=== PATIENT | female | born 1940 | race African-American/Black ===

== ENCOUNTER 2021-04-27 05:19 | Inpatient (IN) | payer MEDICARE, MEDICAID ==
[~2021-04-27] VITALS: Ht 162.6 cm; Wt 67.6 kg
[2021-04-27] MEDS ORDERED: TRAMADOL 50MG TABLET PO ONE (05:45)
[2021-04-27] MEDS ORDERED: SODIUM CHLORIDE 0.9% 250 ML IV ONE (05:45)
[2021-04-27 06:38] LABS: CHLORIDE 109 mEq/L (98-107)
[2021-04-27 06:43] LABS: HEMATOCRIT. 33.4 % (36.0-48.0); HEMOGLOBIN. 10.8 g/dL (12.0-16.0); MEAN CORPUSCULAR HEMOGLOBIN 22.8 pg (28.0-32.0); MEAN CORPUSCULAR VOLUME 70.2 fL (81.0-99.0); MEAN PLATELET VOLUME 8.7 fl (7.4-10.4); PLATELET 169 x1000/uL (130-400); RED BLOOD CELL COUNT 4.75 mill/uL (4.2-5.4); RED CELL DISTRIBUTION WIDTH 16.3 % (11.6-14.6)
[2021-04-27 06:47] LABS: CREATINE KINASE 120 IU/L (26-192)
[2021-04-27 06:52] LABS: PROTHROMBIN TIME 10.3 sec (9.6-11.0)
[2021-04-27 08:46] LABS: PLATELET ESTIMATE NORMAL
[2021-04-27] MEDS ORDERED: ACETAMINOPHEN 650MG SUPP PR PRN (10:15)
[2021-04-27] MEDS ORDERED: NITROGLYCERIN 0.4MG TABLET SL SL PRN (10:15)
[2021-04-27] MEDS ORDERED: ONDANSETRON HCL 4MG/2ML INJ IV PRN (10:15)
[2021-04-27] MEDS ORDERED: KETOROLAC 15MG/ML VIAL IV PRN (10:15)
[2021-04-27] MEDS ORDERED: NA PHOS,M-B/NA PHOS,DI-BA ENEMA 118ML PR PRN (10:15)
[2021-04-27] MEDS ORDERED: IPRATROPIUM/ALBUTEROL 0.5-3(2.5)MG/3ML NEB NEB PRN (10:15)
[2021-04-27] MEDS ORDERED: NALOXONE HCL 0.4MG/ML VIAL IV PRN (10:30)
[2021-04-27 11:00] VITALS: BP 144/84
[2021-04-27 11:13] VITALS: BP 144/84
[2021-04-27] MEDS: PANTOPRAZOLE SODIUM 40 MG/VIAL IV SCH (13:02)
[2021-04-27] MEDS: MORPHINE SULFATE 2 MG/ML CPJ (NOT FOR IM USE) IV PRN (13:02)
[2021-04-27] MEDS: ENOXAPARIN 40MG/0.4ML SYR SUBCUT SCH (13:04)
[2021-04-27] MEDS: ACETAMINOPHEN 650MG/20.3ML UDC GT PRN (13:05)
[2021-04-27 16:00] VITALS: BP 187/66
[2021-04-27] MEDS ORDERED: CARI350T27 MT (16:33)
[2021-04-27] MEDS ORDERED: CLON0.3T PO (16:33)
[2021-04-27] MEDS ORDERED: MONT10TA21 PO (16:33)
[2021-04-27] MEDS ORDERED: REVE175V IH (16:33)
[2021-04-27] MEDS ORDERED: MAG30ORA PO (16:33)
[2021-04-27] MEDS ORDERED: ATOR10TA69 MT (16:33)
[2021-04-27] MEDS ORDERED: IBUP-2741 MT (16:33)
[2021-04-27] MEDS ORDERED: LINA145C PO (16:33)
[2021-04-27] MEDS ORDERED: LIDO700A30 TP (16:33)
[2021-04-27] MEDS ORDERED: LORA-250 MT (16:33)
[2021-04-27] MEDS ORDERED: CLON-457 PO (16:33)
[2021-04-27] MEDS ORDERED: MOME17SP9 BOTHNSTRLS (16:33)
[2021-04-27] MEDS ORDERED: FORM20VI IH (16:33)
[2021-04-27] MEDS ORDERED: ASPI-1160 PO (16:33)
[2021-04-27] MEDS ORDERED: HYDR-4001 PO (16:33)
[2021-04-27] MEDS ORDERED: FOLI-43 PO (16:33)
[2021-04-27] MEDS ORDERED: OMEP20CA14 PO (16:33)
[2021-04-27] MEDS ORDERED: NITR0.4T49 SL (16:33)
[2021-04-27] MEDS ORDERED: METH2.5T PO (16:33)
[2021-04-27] MEDS ORDERED: DOCU-150 PO (16:33)
[2021-04-27] MEDS ORDERED: B25 PO (16:33)
[2021-04-27] MEDS ORDERED: BUDE0.25 NEB (16:33)
[2021-04-27] MEDS ORDERED: AMLO10TA80 MT (16:33)
[2021-04-27] MEDS ORDERED: SILD20TA PO (16:33)
[2021-04-27] MEDS ORDERED: POTA20TA82 PO (16:33)
[2021-04-27] MEDS ORDERED: ZOLP5TAB8 PO (16:33)
[2021-04-27] MEDS ORDERED: CARV25TA47 PO (16:33)
[2021-04-27] MEDS ORDERED: GABA-532 PO (16:33)
[2021-04-27] MEDS ORDERED: PHEN100C12 PO (16:33)
[2021-04-27] MEDS ORDERED: ROSU5TAB PO (16:33)
[2021-04-27] MEDS ORDERED: INSU100I11 SQ (16:33)
[2021-04-27] MEDS ORDERED: NIFE-32 MT (16:33)
[2021-04-27] MEDS ORDERED: HYDR200T35 PO (16:33)
[2021-04-27] MEDS ORDERED: HYDR453.3 TP (16:33)
[2021-04-27] MEDS ORDERED: DEXT15SY3 PO (16:33)
[2021-04-27] MEDS ORDERED: HYDR-4135 MT (16:33)
[2021-04-27] MEDS ORDERED: IPRA3AMP9 HHN (16:33)
[2021-04-27] MEDS ORDERED: CELE-84 PO (16:33)
[2021-04-27] MEDS ORDERED: TOPUD PO (16:33)
[2021-04-27] MEDS ORDERED: VORT10TA PO (16:33)
[2021-04-27] MEDS ORDERED: LORAZEPAM 2MG/ML CPJ IV PRN (17:15)
[2021-04-27] MEDS ORDERED: LEVETIRACETAM 500 MG in SODIUM CHLORIDE 0.9% 100 ML IV SCH (17:30)
[2021-04-27 20:00] VITALS: BP 174/80
[2021-04-27] MEDS: HYDRALAZINE 20MG/ML VIAL IV PRN (20:43)
[2021-04-27] MEDS: NITROGLYCERIN OINT 1GM/INCH UDPKT TD SCH (20:43)
[2021-04-27] MEDS: LEVETIRACETAM 500MG PREMIX 100 ML IV SCH (20:43)
[2021-04-27] MEDS: DEXT 5%/LACTATED RINGERS 1,000 ML IV SCH ×2 (20:44→23:35)
[2021-04-28] VITALS: BP 130/73
[2021-04-28 04:00] VITALS: BP 160/77
[2021-04-28] MEDS: NITROGLYCERIN OINT 1GM/INCH UDPKT TD SCH ×3 (06:19→21:12)
[2021-04-28] MEDS: HYDRALAZINE 20MG/ML VIAL IV PRN (06:22)
[2021-04-28 07:08] LABS: CHLORIDE 111 mEq/L (98-107)
[2021-04-28 07:09] LABS: BASOPHILS % 0.3 % (0.0-2.0); EOSINOPHILS % 0.6 % (0.0-5.0); HEMATOCRIT. 26.6 % (36.0-48.0); HEMOGLOBIN. 8.7 g/dL (12.0-16.0); LYMPHOCYTES % 30.3 % (20.0-50.0); MEAN CORPUSCULAR HEMOGLOBIN 22.9 pg (28.0-32.0); MEAN PLATELET VOLUME 8.3 fl (7.4-10.4); MONOCYTES % 8.5 % (2.0-8.0); NEUTROPHILS % 60.3 % (40.0-76.0); PLATELET 122 x1000/uL (130-400); RED BLOOD CELL COUNT 3.79 mill/uL (4.2-5.4); RED CELL DISTRIBUTION WIDTH 15.5 % (11.6-14.6)
[2021-04-28 07:17] LABS: PHOSPHORUS 2.5 mg/dL (2.5-4.9)
[2021-04-28] MEDS: MORPHINE SULFATE 2 MG/ML CPJ (NOT FOR IM USE) IV PRN (07:21)
[2021-04-28 08:00] VITALS: BP 123/63
[2021-04-28] MEDS: LEVETIRACETAM 500MG PREMIX 100 ML IV SCH ×2 (08:23→20:49)
[2021-04-28] MEDS: PANTOPRAZOLE SODIUM 40 MG/VIAL IV SCH (08:26)
[2021-04-28] MEDS: CYANOCOBALAMIN 1000MCG/ML VIAL IM SCH (08:26)
[2021-04-28] MEDS ORDERED: INFLUENZA VACCINE 05/PF 0.5 ML SYRINGE IM ONE (09:00)
[2021-04-28 12:00] VITALS: BP 128/70
[2021-04-28] MEDS: ENOXAPARIN 40MG/0.4ML SYR SUBCUT SCH (13:25)
[2021-04-28 16:00] VITALS: BP 115/58
[2021-04-28] MEDS: DEXT 5%/LACTATED RINGERS 1,000 ML IV SCH (17:43)
[2021-04-28 20:00] VITALS: BP 139/66
[2021-04-29] VITALS: BP 144/75
[2021-04-29] MEDS: DEXT 5%/LACTATED RINGERS 1,000 ML IV SCH ×2 (00:55→17:41)
[2021-04-29] MEDS: MORPHINE SULFATE 2 MG/ML CPJ (NOT FOR IM USE) IV PRN ×3 (02:39→19:53)
[2021-04-29 04:00] VITALS: BP 150/73
[2021-04-29] MEDS: NITROGLYCERIN OINT 1GM/INCH UDPKT TD SCH ×3 (05:55→21:49)
[2021-04-29 08:00] VITALS: BP 157/84
[2021-04-29] MEDS: FAMOTIDINE 20MG/2ML VIAL IV SCH (09:45)
[2021-04-29] MEDS: CYANOCOBALAMIN 1000MCG/ML VIAL IM SCH (09:45)
[2021-04-29] MEDS: LEVETIRACETAM 500MG PREMIX 100 ML IV SCH (09:49)
[2021-04-29 12:00] VITALS: BP 129/64
[2021-04-29] MEDS: ENOXAPARIN 40MG/0.4ML SYR SUBCUT SCH (12:01)
[2021-04-29 16:00] VITALS: BP 151/72
[2021-04-29] MEDS: LEVETIRACETAM 500MG TABLET PO SCH (17:41)
[2021-04-29 20:00] VITALS: BP 147/68
[2021-04-30] VITALS: BP 138/65
[2021-04-30 04:00] VITALS: BP 158/82
[2021-04-30] MEDS: DEXT 5%/LACTATED RINGERS 1,000 ML IV SCH (04:39)
[2021-04-30] MEDS: MORPHINE SULFATE 2 MG/ML CPJ (NOT FOR IM USE) IV PRN ×2 (04:39→17:24)
[2021-04-30] MEDS: NITROGLYCERIN OINT 1GM/INCH UDPKT TD SCH ×2 (05:29→13:57)
[2021-04-30 08:20] VITALS: BP 146/64
[2021-04-30] MEDS: CYANOCOBALAMIN 1000MCG/ML VIAL IM SCH (09:48)
[2021-04-30] MEDS: FAMOTIDINE 20MG/2ML VIAL IV SCH (09:48)
[2021-04-30] MEDS: LEVETIRACETAM 500MG TABLET PO SCH ×2 (09:48→17:31)
[2021-04-30] MEDS: ACETAMINOPHEN 650MG/20.3ML UDC GT PRN (09:52)
[2021-04-30] MEDS: ENOXAPARIN 40MG/0.4ML SYR SUBCUT SCH (10:05)
[2021-04-30 12:00] VITALS: BP 145/75
[2021-04-30] MEDS ORDERED: NITROGLYCERIN 0.4MG TABLET SL SL PRN (14:00)
[2021-04-30] MEDS ORDERED: BUTALBITAL/ACETAMINOPHEN/CAFFEINE 50/325/40MG TABLET PO PRN (15:00)
[2021-04-30 16:00] VITALS: BP 138/70
[2021-04-30 20:00] VITALS: BP 159/72
[2021-04-30] MEDS: HYDRALAZINE 20MG/ML VIAL IV PRN (23:34)
[2021-05-01] VITALS: BP 167/95
[2021-05-01 04:00] VITALS: BP 140/78
[2021-05-01] MEDS: DEXT 5%/LACTATED RINGERS 1,000 ML IV SCH ×2 (05:54→21:49)
[2021-05-01 08:00] VITALS: BP 152/61
[2021-05-01] MEDS: CYANOCOBALAMIN 1000MCG/ML VIAL IM SCH (09:14)
[2021-05-01] MEDS: FAMOTIDINE 20MG TABLET PO SCH (09:14)
[2021-05-01] MEDS: LEVETIRACETAM 500MG TABLET PO SCH ×2 (09:14→17:12)
[2021-05-01 12:00] VITALS: BP 137/78
[2021-05-01] MEDS: ENOXAPARIN 40MG/0.4ML SYR SUBCUT SCH (12:23)
[2021-05-01] MEDS: MORPHINE SULFATE 2 MG/ML CPJ (NOT FOR IM USE) IV PRN ×2 (12:39→21:49)
[2021-05-01 16:00] VITALS: BP 167/83
[2021-05-01 20:00] VITALS: BP 134/93
[2021-05-02] VITALS: BP 130/74
[2021-05-02 04:00] VITALS: BP 136/61
[2021-05-02 08:00] VITALS: BP 137/73
[2021-05-02] MEDS: FAMOTIDINE 20MG TABLET PO SCH (09:10)
[2021-05-02] MEDS: LEVETIRACETAM 500MG TABLET PO SCH ×2 (09:10→17:48)
[2021-05-02] MEDS: CYANOCOBALAMIN 1000MCG/ML VIAL IM SCH (09:10)
[2021-05-02] MEDS: PANTOT AC/MIN OIL/PET HY-PHL OINT (AQUAPHOR) TOP SCH (11:46)
[2021-05-02] MEDS: ENOXAPARIN 40MG/0.4ML SYR SUBCUT SCH (11:48)
[2021-05-02 12:00] VITALS: BP 134/73
[2021-05-02] MEDS: LIDOCAINE 5% PATCH TOP SCH (14:54)
[2021-05-02 16:00] VITALS: BP 154/70
[2021-05-02 20:00] VITALS: BP 106/79
[2021-05-02] MEDS: DEXT 5%/LACTATED RINGERS 1,000 ML IV SCH (22:17)
[2021-05-03] VITALS: BP 141/69
[2021-05-03 04:00] VITALS: BP 167/75
[2021-05-03] MEDS: HYDRALAZINE 20MG/ML VIAL IV PRN (06:24)
[2021-05-03 08:00] VITALS: BP 107/47
[2021-05-03] MEDS: METHYL SALICYLATE/MENTHOL CREAM 85GM TOP PRN ×2 (09:27→09:29)
[2021-05-03] MEDS: CYANOCOBALAMIN 1000MCG/ML VIAL IM SCH (09:28)
[2021-05-03] MEDS: LEVETIRACETAM 500MG TABLET PO SCH ×2 (09:28→17:29)
[2021-05-03] MEDS: FAMOTIDINE 20MG TABLET PO SCH (09:28)
[2021-05-03] MEDS: LIDOCAINE 5% PATCH TOP SCH (09:28)
[2021-05-03] MEDS: PANTOT AC/MIN OIL/PET HY-PHL OINT (AQUAPHOR) TOP SCH (09:29)
[2021-05-03] MEDS: ENOXAPARIN 40MG/0.4ML SYR SUBCUT SCH (11:44)
[2021-05-03 12:00] VITALS: BP 124/64
[2021-05-03] MEDS: DEXT 5%/LACTATED RINGERS 1,000 ML IV SCH (12:55)
[2021-05-03] MEDS ORDERED: DIPHENHYDRAMINE 12.5MG/5ML UDC PO PRN (14:15)
[2021-05-03 16:00] VITALS: BP 129/68
[2021-05-03 20:00] VITALS: BP 128/72
[2021-05-04] VITALS: BP 127/59
[2021-05-04] MEDS: DEXT 5%/LACTATED RINGERS 1,000 ML IV SCH (01:40)
[2021-05-04 04:00] VITALS: BP 96/59
[2021-05-04 08:00] VITALS: BP 138/51
[2021-05-04] MEDS: FAMOTIDINE 20MG TABLET PO SCH (09:16)
[2021-05-04] MEDS: METHYL SALICYLATE/MENTHOL CREAM 85GM TOP PRN (09:16)
[2021-05-04] MEDS: LEVETIRACETAM 500MG TABLET PO SCH (09:16)
[2021-05-04] MEDS: CYANOCOBALAMIN 1000MCG/ML VIAL IM SCH (09:16)
[2021-05-04] MEDS: PANTOT AC/MIN OIL/PET HY-PHL OINT (AQUAPHOR) TOP SCH (09:16)
[2021-05-04] MEDS: LIDOCAINE 5% PATCH TOP SCH (09:18)
[2021-05-04 12:00] VITALS: BP 129/59
[2021-05-04] MEDS: ENOXAPARIN 40MG/0.4ML SYR SUBCUT SCH (13:05)
[2021-05-04 14:10] VITALS: BP 129/59
[2021-05-04 16:00] VITALS: BP 113/51
== END 2021-05-04 16:35 | DRG 100 ==
LOC: ER 05:19 → 6EST 08:42 → EDBEDREQ 09:10 → EDBEDREQTM 09:10 → ENRESERV 09:19 → SUPCPDRO 09:50 → 6WST 18:56 → UNDODISIN 05-04 16:35
PROVIDERS: ADMIT Internal Medicine; ATTEND Internal Medicine
DX: G40.909 Epilepsy, unspecified, not intractable, without status epilepticus (principal); G92.8 Other toxic encephalopathy; I16.1 Hypertensive emergency; K56.609 Unspecified intestinal obstruction, unspecified as to partial versus complete obstruction; D61.818 Other pancytopenia; M48.54XA Collapsed vertebra, not elsewhere classified, thoracic region, initial encounter for fracture; D64.9 Anemia, unspecified; E87.5 Hyperkalemia; G89.29 Other chronic pain; I10 Essential (primary) hypertension; Z96.653 Presence of artificial knee joint, bilateral; R53.81 Other malaise; R74.01 Elevation of levels of liver transaminase levels; R79.89 Other specified abnormal findings of blood chemistry; R26.9 Unspecified abnormalities of gait and mobility; Z20.822 Contact with and (suspected) exposure to COVID-19; M47.896 Other spondylosis, lumbar region; W18.39XA Other fall on same level, initial encounter; M48.061 Spinal stenosis, lumbar region without neurogenic claudication; M51.36 Other intervertebral disc degeneration, lumbar region; Z82.49 Family history of ischemic heart disease and other diseases of the circulatory system; Z90.49 Acquired absence of other specified parts of digestive tract; Z87.81 Personal history of (healed) traumatic fracture; Y93.89 Activity, other specified; Y92.89 Other specified places as the place of occurrence of the external cause; Y99.8 Other external cause status; D63.8 Anemia in other chronic diseases classified elsewhere
CPT/HCPCS: 36415; 71045; 72146; 72148; 73562; 74176; 80053; 82550; 82607; 82746; 83540; 83550; 83735; 83880; 84100; 84443; 84484; 85025; 87426; 90686; 92610; 93005; 93970; 97161; 97166; 99285; C1893; C9113; J0360; J1650; J1885; J1953; J2270; J3420; J3490; J7050; J7121

== ENCOUNTER 2022-09-18 13:15 | Emergency (ER) | payer MEDICARE, MEDICAID ==
[~2022-09-18] VITALS: Ht 165.1 cm; Wt 50.0 kg
[~2022-09-18 13:15] MED LIST: AMLO10TA80 MT; ASPI-1160 PO; ATOR10TA69 MT; BUDE0.25 NEB; CARI350T27 MT; CARV25TA47 PO; CELE-84 PO; CLON0.3T PO; DEXT15SY3 PO; DOCU-150 PO; ENAL-77 PO; FOLI-43 PO; FORM20VI IH; GABA-532 PO; HYDR-4001 PO; HYDR-4135 MT; HYDR200T35 PO; HYDR453.3 TP; IBUP-2741 MT; INSU100I11 SQ; IPRA3AMP9 HHN; LAMO25TA9 PO; LIDO700A30 TP; LINA145C PO; LORA-250 MT; LOSA100T32 PO; MAG30ORA PO; METH2.5T PO; MOME17SP11 BOTHNSTRLS; MONT-46 PO; NIFE-32 MT; NITR0.4T49 SL; OMEP20CA14 PO; PANT40TA51 PO; PHEN100C12 PO; POTA-205 PO; REVE175V IH; ROSU5TAB PO; SILD20TA PO; SULF1TAB48 PO; TOPUD PO; VORT10TA PO; ZOLP5TAB8 PO
[2022-09-18 13:33] VITALS: BP 171/93
[2022-09-18] MEDS ORDERED: PREDNISONE 20MG TABLET PO NR (14:35)
[2022-09-18] MEDS ORDERED: IPRATROPIUM BROMIDE (0.02%) 0.5MG/2.5ML NEB HHN NR (14:35)
[2022-09-18] MEDS ORDERED: SODIUM CHLORIDE 0.9% 1,000 ML IV ONE (14:45)
[2022-09-18] MEDS ORDERED: MAGNESIUM 2 G PREMIX 50 ML IV NR (14:45)
[2022-09-18] MEDS ORDERED: ALBUTEROL (0.083%) 2.5MG/3ML NEB HHN SCH (15:00)
[2022-09-18 16:23] LABS: CHLORIDE 110 mEq/L (98-107)
[2022-09-18 16:35] LABS: HEMATOCRIT. 25.1 % (36.0-48.0); HEMOGLOBIN. 8.3 g/dL (12.0-16.0); MEAN CORPUSCULAR HEMOGLOBIN 23.1 pg (28.0-32.0); MEAN CORPUSCULAR VOLUME 69.8 fL (81.0-99.0); MEAN PLATELET VOLUME 8.2 fl (7.4-10.4); PLATELET 174 x1000/uL (130-400); RED BLOOD CELL COUNT 3.59 mill/uL (4.2-5.4); RED CELL DISTRIBUTION WIDTH 16.2 % (11.6-14.6)
[2022-09-18] MEDS ORDERED: AZIT250T MT (16:59)
[2022-09-18] MEDS ORDERED: P20 MT (16:59)
[2022-09-18 18:21] LABS: PLATELET ESTIMATE NORMAL
== END 2022-09-18 22:10 | disposition home or self-care (01) ==
LOC: ER 13:15
DX: J45.901 Unspecified asthma with (acute) exacerbation (principal); I10 Essential (primary) hypertension; Z79.82 Long term (current) use of aspirin; Z79.899 Other long term (current) drug therapy; Z86.59 Personal history of other mental and behavioral disorders
CPT/HCPCS: 36415; 71045; 80053; 84145; 85025; 85730; 93005; 99285; J7512

== ENCOUNTER 2023-05-18 15:35 | Emergency (ER) | payer MEDICARE, MEDICAID ==
[~2023-05-18] VITALS: Ht 152.4 cm; Wt 51.0 kg
[~2023-05-18 15:35] MED LIST changes: +AZIT250T MT; +CELE-116 PO; -CELE-84 PO; -LOSA100T32 PO; +LOSA100T33 PO; +P20 MT
[2023-05-18 15:40] VITALS: O2SAT 97
[2023-05-18 17:03] LABS: DIFFERENTIAL COMMENT 1; HEMATOCRIT. 25.8 % (36.0-48.0); HEMOGLOBIN. 8.2 g/dL (12.0-16.0); MEAN CORPUSCULAR HEMOGLOBIN 22.2 pg (28.0-32.0); MEAN CORPUSCULAR HGB CONC 31.7 g/dL (31.0-37.0); MEAN CORPUSCULAR VOLUME 70.1 fL (81.0-99.0); MEAN PLATELET VOLUME 8.1 fl (7.4-10.4); PLATELET 218 x1000/uL (130-400); RED BLOOD CELL COUNT 3.67 mill/uL (4.2-5.4); RED CELL DISTRIBUTION WIDTH 16.9 % (11.6-14.6); WHITE BLOOD COUNT 4.8 x1000/uL (4.5-11.0)
[2023-05-18 17:15] LABS: ALANINE AMINOTRANSFERASE 8 IU/L (10-49); ALBUMIN 3.4 g/dL (3.2-4.8); ASPARTATE AMINOTRANSFERASE 22 IU/L (<34); BILIRUBIN TOTAL 0.2 mg/dL (0.1-1.0); CALCIUM 8.5 mg/dL (8.7-10.4); CARBON DIOXIDE 27 mEq/L (21-32); CHLORIDE 109 mEq/L (98-107); CREATININE 0.8 mg/dL (0.6-1.0); GLUCOSE 83 mg/dL (70-105); POTASSIUM 4.5 mEq/L (3.5-5.1); PROTEIN TOTAL 6.4 g/dL (6.0-8.3); SODIUM 142 mEq/L (136-145); UREA NITROGEN BLOOD 20 mg/dL (9-23)
[2023-05-18 17:27] LABS: ANISOCYTOSIS 1+; HYPOCHROMASIA 1+; MICROCYTOSIS 2+; PLATELET ESTIMATE NORMAL
[2023-05-18] MEDS ORDERED: TRAM50TA3 MT (18:37)
[2023-05-18] MEDS ORDERED: TRAMADOL 50MG TABLET PO ONE (18:45)
[2023-05-18 19:57] LABS: CLARITY URINE CLEAR (CLEAR); COLOR URINE YELLOW (YELLOW); PH URINE 7.5 (4.5-8.0); SPECIFIC GRAVITY URINE 1.013 (1.005-1.030)
[2023-05-18 19:58] LABS: GLUCOSE URINE NEGATIVE (NEGATIVE); KETONES URINE NEGATIVE (NEGATIVE); LEUKOCYTE ESTERASE URINE TRACE (NEGATIVE); NITRITE URINE NEGATIVE (NEGATIVE); OCCULT BLOOD URINE NEGATIVE (NEGATIVE); PROTEIN URINE TRACE (NEGATIVE)
[2023-05-18 20:03] VITALS: BP 166/78; PULSE 69; RESP 20; TEMP 98.3
== END 2023-05-19 00:55 | disposition home or self-care (01) ==
LOC: ER 15:35
DX: S09.90XA Unspecified injury of head, initial encounter (principal); M54.9 Dorsalgia, unspecified; J45.909 Unspecified asthma, uncomplicated; I10 Essential (primary) hypertension; Z79.899 Other long term (current) drug therapy; W18.39XA Other fall on same level, initial encounter; Y93.89 Activity, other specified; Y92.89 Other specified places as the place of occurrence of the external cause; Y99.8 Other external cause status
CPT/HCPCS: 36415; 71045; 72100; 73502; 80053; 81003; 85025; 99285

== ENCOUNTER 2023-06-10 05:53 | Emergency (ER) | payer MEDICARE, MEDICAID ==
[~2023-06-10] VITALS: Ht 162.6 cm; Wt 60.0 kg
[~2023-06-10 05:53] MED LIST changes: +TRAM50TA3 MT
[2023-06-10 06:13] VITALS: O2SAT 98
[2023-06-10] MEDS ORDERED: SODIUM CHLORIDE 0.9% 1000ML BAG (SEPSIS BOLUS) IV ONE (06:45)
[2023-06-10] MEDS ORDERED: LEVOFLOXACIN 250MG PREMIX 50 ML IV ONE (06:45)
[2023-06-10 07:39] LABS: HEMATOCRIT. 32.2 % (36.0-48.0); HEMOGLOBIN. 10.5 g/dL (12.0-16.0); MEAN CORPUSCULAR HEMOGLOBIN 22.6 pg (28.0-32.0); MEAN CORPUSCULAR HGB CONC 32.6 g/dL (31.0-37.0); MEAN CORPUSCULAR VOLUME 69.2 fL (81.0-99.0); PLATELET 191 x1000/uL (130-400); RED BLOOD CELL COUNT 4.65 mill/uL (4.2-5.4); WHITE BLOOD COUNT 5.6 x1000/uL (4.5-11.0)
[2023-06-10 07:44] LABS: DIFFERENTIAL COMMENT 1
[2023-06-10] MEDS ORDERED: HYDRALAZINE 20MG/ML VIAL IV ONE (07:45)
[2023-06-10 08:08] LABS: CALCIUM 9.2 mg/dL (8.7-10.4); CARBON DIOXIDE 31 mEq/L (21-32); CHLORIDE 103 mEq/L (98-107); CREATININE 0.7 mg/dL (0.6-1.0); GLUCOSE 90 mg/dL (70-105); POTASSIUM 3.9 mEq/L (3.5-5.1); SODIUM 139 mEq/L (136-145); UREA NITROGEN BLOOD 12 mg/dL (9-23)
[2023-06-10 08:09] LABS: ALANINE AMINOTRANSFERASE 13 IU/L (10-49); ALBUMIN 4.1 g/dL (3.2-4.8); ASPARTATE AMINOTRANSFERASE 31 IU/L (<34); BILIRUBIN TOTAL 0.4 mg/dL (0.1-1.0); PROTEIN TOTAL 7.9 g/dL (6.0-8.3); TROPONIN I HIGH SENSITIVITY 13 ng/L (3.0-34)
[2023-06-10 08:27] LABS: ANISOCYTOSIS 1+; MICROCYTOSIS 2+; PLATELET ESTIMATE NORMAL
[2023-06-10] MEDS ORDERED: HYDROCODONE/ACETAMINOPHEN 5/325MG TABLET PO ONE (09:30)
[2023-06-10 09:44] LABS: TROPONIN I HIGH SENSITIVITY 12 ng/L (3.0-34)
[2023-06-10] MEDS ORDERED: TRAM50TA3 MT (13:36)
[2023-06-10] MEDS ORDERED: TOPUD MT (13:36)
[2023-06-10 16:27] VITALS: BP 164/93; PULSE 75; RESP 16; TEMP 98.2
== END 2023-06-10 16:27 | disposition home or self-care (01) ==
LOC: ER 05:53
DX: T14.8XXA Other injury of unspecified body region, initial encounter (principal); J45.909 Unspecified asthma, uncomplicated; I10 Essential (primary) hypertension; Z88.0 Allergy status to penicillin; Z79.899 Other long term (current) drug therapy; W19.XXXA Unspecified fall, initial encounter; Y93.89 Activity, other specified; Y92.89 Other specified places as the place of occurrence of the external cause; Y99.8 Other external cause status
CPT/HCPCS: 99285; 96365; 71045; 96366; 96375; 80053; 83880; 83605; 85025; 84484; 36415; 73522; 73030; 93005; J1956; J0360; J7030